=== PATIENT | female | born 1950 | race Caucasian/White ===

== ENCOUNTER 2020-11-06 11:35 | Emergency (ER) | payer MEDICARE ==
[~2020-11-06] VITALS: Ht 160 cm; Wt 95.3 kg
[~2020-11-06 11:35] MED LIST: PRILOSEC40 MG
[2020-11-06] MEDS ORDERED: ONDANSETRON ODT4 MG PO (12:16)
[2020-11-06] MEDS: ONDANSETRON HCL 4 MG ORAL DISINTEGRATING TAB PO NR ×2 (12:20→12:27)
== END 2020-11-06 12:30 | disposition home or self-care (01) ==
LOC: FSED 11:48
DX: R19.7 Diarrhea, unspecified (principal); R11.0 Nausea; K58.9 Irritable bowel syndrome, unspecified
CPT/HCPCS: 99282; Q0162

== ENCOUNTER 2023-11-02 08:40 | Inpatient (IN) | payer MEDICARE ==
[~2023-11-02] VITALS: Ht 160 cm; Wt 72.6 kg
[~2023-11-02 08:40] MED LIST changes: +ONDANSETRON ODT4 MG PO
[2023-11-02] MEDS: ONDANSETRON HCL INJ 2MG/ML 2ML 2 MG/ML VIAL IV STA (09:29)
[2023-11-02] MEDS ORDERED: GLIMEPIRIDE4 MG PO (09:33)
[2023-11-02] MEDS ORDERED: PROTONIX20 MG PO (09:33)
[2023-11-02] MEDS ORDERED: LISINOPRIL10 MG PO (09:33)
[2023-11-02] MEDS ORDERED: HYDROCHLOROTHIA25 MG PO (09:33)
[2023-11-02 09:48] LABS: EOSINOPHILS % 0.4 % (0.0-6.0); HEMATOCRIT 39.6 % (34.2-44.1); HEMOGLOBIN 13.4 g/dL (12.0-16.0); LYMPHOCYTES % 11.6 % (18.0-39.1); MEAN CORPUSCULAR HEMOGLOBIN 29.1 pg (28-32); MEAN CORPUSCULAR HGB CONC 33.8 g/dL (31-35); MEAN CORPUSCULAR VOLUME 86.1 fL (81-99); MONOCYTES % 9.2 % (4.4-11.3); NEUTROPHILS % 76.6 % (38.7-80.0); PLATELET COUNT 196 x10e3/uL (140-360); RED CELL DISTRIBUTION WIDTH 20.8 % (11.7-14.4); WHITE BLOOD COUNT 10.93 x10e3/uL (4.8-10.8)
[2023-11-02 09:49] LABS: BASOPHILS # (AUTO) 0.1 (0.0-0.1); BASOPHILS % 0.7 % (0.0-1.0); LYMPHOCYTES # (AUTO) 1.3 (1.0-3.2); NEUTROPHILS # (AUTO) 8.4 (2.1-6.9)
[2023-11-02 10:13] LABS: INR 0.97; PARTIAL THROMBOPLASTIN TIME 32.8 seconds (23.8-35.5); PROTHROMBIN TIME 13.6 seconds (11.9-14.5)
[2023-11-02 10:30] LABS: ANION GAP 21.2 mmol/L (8-16); BILIRUBIN,TOTAL 22.8 mg/dL (0.2-1.2); CALCIUM 9.5 mg/dL (8.4-10.2); CREATININE, SERUM 1.69 mg/dL (0.57-1.11); POTASSIUM 3.2 mmol/L (3.5-5.1)
[2023-11-02 10:31] LABS: ALBUMIN 2.9 g/dL (3.5-5.0); ALBUMIN/GLOBULIN RATIO 0.7 (0.8-2.0); TOTAL PROTEIN 7.2 g/dL (6.5-8.1)
[2023-11-02] MEDS ORDERED: IOPAMIDOL 370 MG/ML 100 ML INFUS..BTL INJ ONE (10:40)
[2023-11-02] MEDS ORDERED: SODIUM CHLORIDE FLUSH 10 ML SYR INJ PRN (13:45)
[2023-11-02] MEDS: LORAZEPAM INJ 2 MG/ML VIAL IV ONE (14:08)
[2023-11-02] MEDS: SODIUM CHLORIDE 0.9% 1000ML 1,000 ML IV SCH (14:14)
[2023-11-02 15:30] VITALS: PULSE 88; RESP 17; TEMP 98.6
[2023-11-02 16:00] VITALS: BP 106/52; PULSE 88; RESP 16; RESP 17; TEMP 98.3; O2SAT 98
[2023-11-02 20:00] VITALS: BP 103/63; PULSE 79; RESP 17; TEMP 98.4; O2SAT 98
[2023-11-03] VITALS: BP 118/59; PULSE 70; RESP 17; TEMP 97.8; O2SAT 100
[2023-11-03 04:00] VITALS: BP 105/71; PULSE 70; RESP 18; TEMP 97.7; O2SAT 100
[2023-11-03] MEDS: DEXTROSE 5%/0.45% SOD CHL 1,000 ML IV SCH (06:09)
[2023-11-03 08:00] VITALS: BP 105/71; PULSE 70; RESP 18; TEMP 97.7; O2SAT 100
[2023-11-03] MEDS: DEXTROSE 50% SYRINGE 50 ML IV ONE ×3 (08:13→16:34)
[2023-11-03] MEDS: ONDANSETRON HCL INJ 2MG/ML 2ML 2 MG/ML VIAL IV PRN (09:41)
[2023-11-03] MEDS: Morphine 4mg INJECTION 4 MG/ML INJ IV PRN (09:41)
[2023-11-03 09:50] VITALS: BP 123/61; PULSE 73; RESP 18; TEMP 98; O2SAT 100
[2023-11-03 12:29] VITALS: BP 119/54; PULSE 80; RESP 18; TEMP 98.2; O2SAT 98
[2023-11-03 16:25] VITALS: BP 122/62; PULSE 83; RESP 18; TEMP 98.4; O2SAT 98
[2023-11-03] MEDS: POTASSIUM CHLORIDE 10MEQ EA PO ONE (17:22)
== END 2023-11-03 19:39 | disposition short-term general hospital (02) | DRG 435 ==
LOC: ER 09:00 → ERHOLD 13:46 → MED/SURG2 15:50
PROVIDERS: ADMIT Internal Medicine; ATTEND Internal Medicine
DX: C23 Malignant neoplasm of gallbladder (principal); K83.1 Obstruction of bile duct; K81.0 Acute cholecystitis; N17.9 Acute kidney failure, unspecified; E11.649 Type 2 diabetes mellitus with hypoglycemia without coma; E11.22 Type 2 diabetes mellitus with diabetic chronic kidney disease; I12.9 Hypertensive chronic kidney disease with stage 1 through stage 4 chronic kidney disease, or unspecified chronic kidney disease; E11.9 Type 2 diabetes mellitus without complications; R74.01 Elevation of levels of liver transaminase levels; N18.30 Chronic kidney disease, stage 3 unspecified; E87.6 Hypokalemia; R63.4 Abnormal weight loss; Z79.84 Long term (current) use of oral hypoglycemic drugs
CPT/HCPCS: 36415; 74018; 74177; 74181; 80053; 82948; 83690; 85025; 85610; 85730; 99284; J2060; J2405; J2543; J7030; J7799; Q9967; U0002